=== PATIENT | male | born 1975 | race African-American/Black ===

== ENCOUNTER 2016-05-26 12:56 | Inpatient (IN) | payer OTHER ==
[2016-05-26 14:28] VITALS: BMI 27.1
--- NOTE | 2016-05-26 17:10 | HP ---
CIWA Score - CIWA Score Nausea/Vomitin Muscle Tremors: 4-Moderate,w/Arms Extend Anxiety: 4-Mod. Anxious/Guarded Agitation: 4-Moderately Restless Paroxysmal Sweats: 2 Orientation: 0-Oriented Tacttile Disturbances: 0-None Auditory Disturbances: 0-None Visual Disturbances: 0-None Headache: 3-Moderate CIWA-Ar Total Score: 19 Admission ROS BHS - HPI Chief Complaint: withdrawal sx Allergies/Adverse Reactions: Allergies Allergy/AdvReac Type Severity Reaction Status Date / Time No Known Allergies Allergy Verified 05/26/16 16:53 History of Present Illness: 41 years old male with long history of alcohol nicotine dependence, denies medical issue has depression, longest sobriety 4 months is admitted to detox Exam Limitations: No Limitations - Ebola screening Have you traveled outside of the country in the last 21 days: No Have you had contact with anyone from an Ebola affected area: No Have you been sick,other than usual withdrawal symptoms: No Do you have a fever: No - Review of Systems Constitutional: Chills, Changes in sleep, Weight Stable EENT: reports: No Symptoms Reported Respiratory: reports: Cough Cardiac: reports: No Symptoms Reported GI: reports: Diarrhea, Nausea, Poor Fluid Intake, Vomiting, Indigestion, Abdominal cramping : reports: No Symptoms Reported Musculoskeletal: reports: Back Pain, Joint Pain, Muscle Pain, Neck Pain Integumentary: reports: Lesions (right nostrile) Neuro: reports: Tremors Endocrine: reports: No Symptoms Reported Hematology: reports: No Symptoms Reported Psychiatric: reports: Judgement Intact, Orientated x3, Depressed Other Systems: Reviewed and Negative Patient History - Patient Medical History Hx Anemia: No Hx Asthma: No Hx Chronic Obstructive Pulmonary Disease (COPD): No Hx Cancer: No Hx Cardiac Disorders: No Hx Congestive Heart Failure: No Hx Hypertension: No Hx Hypercholesterolemia: No Hx Pacemaker: No HX Cerebrovascular Accident: No Hx Seizures: No Hx Dementia: No Hx Diabetes: No Hx Gastrointestinal Disorders: No Hx Genitourinary Disorders: No Hx Sexually Transmitted Disorders: Yes (syphilis) Hx Renal Disease (ESRD): No Hx Thyroid Disease: No Hx Human Immunodeficiency Virus (HIV): No Hx Hepatitis C: No Hx Depression: Yes Hx Suicide Attempt: No Hx Bipolar Disorder: No Hx Schizophrenia: No - Patient Surgical History Past Surgical History: No Hx Neurologic Surgery: No Hx Cataract Extraction: No Hx Cardiac Surgery: No Hx Lung Surgery: No Hx Breast Surgery: No Hx Breast Biopsy: No Hx Abdominal Surgery: No Hx Appendectomy: No Hx Cholecystectomy: No Hx Genitourinary Surgery: No Hx Orthopedic Surgery: No - PPD History Previous Implant?: Yes Documented Results: Negative w/proof Implanted On Prior [facility] Admission?: Yes Date: 04/12/13 PPD to be Administered?: Yes - Smoking Cessation Smoking history: Current every day smoker Have you smoked in the past 12 months: Yes Aproximately how many cigarettes per day: 10 Cigars Per Day: 0 Hx Chewing Tobacco Use: No Initiated information on smoking cessation: Yes 'Breaking Loose' booklet given: 05/26/16 - Substance & Tx. History Hx Alcohol Use: Yes Hx Substance Use: Yes Substance Use Type: Alcohol, Cocaine, Tranquilizers Hx Substance Use Treatment: Yes - Substances Abused Alcohol Route: Oral Frequency: Daily Amount used: LIQUOR- 2 PINTS, BBER- 1 SIX PACK Age of first use: 14 Date of Last Use: 05/25/16 Alprazolam (Xanax) Route: Oral Frequency: 3-6 times per week Amount used: 12 mg Age of first use: 40 Date of Last Use: 05/24/16 Cocaine Route: Smoking Frequency: Daily Family Disease History - Family Disease History Family Disease History: Respiratory: Father (alcohol ), Mother (alcohol ) Admission Physical Exam BHS - Vital Signs Vital Signs: Vital Signs - 24 hr 05/26/16 14:26 Temperature 98.8 F Pulse Rate 60 Respiratory 18 Rate Blood Pressure 129/70 - Physical General Appearance: Yes: Appropriately Dressed, Moderate Distress, Tremorous, Irritable, Sweating, Anxious HEENTM: Yes: Hearing grossly Normal, Normal ENT Inspection, Normocephalic, Normal Voice Respiratory: Yes: Chest Non-Tender, Lungs Clear, Normal Breath Sounds, No Respiratory Distress, No Accessory Muscle Use Neck: Yes: Supple, Trachea in good position Breast: Yes: Breasts Symetrical Cardiology: Yes: Regular Rhythm, Regular Rate, S1, S2 Abdominal: Yes: Non Tender, Soft Genitourinary: Yes: Within Normal Limits Back: Yes: Normal Inspection Musculoskeletal: Yes: full range of Motion, Gait Steady Extremities: Yes: Normal Range of Motion, Non-Tender, Tremors Neurological: Yes: Fully Oriented, Alert, Motor Strength 5/5, Normal Response, Depressed Affect Integumentary: Yes: Warm, Clammy Lymphatic: Yes: Within Normal Limits - Diagnostic (1) Nicotine dependence Current Visit: Yes Status: Active (2) Alcohol dependence with uncomplicated withdrawal Current Visit: Yes Status: Acute (3) Vomiting and diarrhea Current Visit: Yes Status: Acute (4) Depression (emotion) Current Visit: Yes Status: Suspected Qualifiers: Depression Type: dysthymia Qualified Code(s): F34.1 - Dysthymic disorder (5) Acid reflux Current Visit: Yes Status: Acute Qualifiers: Esophagitis presence: without esophagitis Qualified Code(s): K21.9 - Gastro-esophageal reflux disease without esophagitis (6) Cocaine dependence, uncomplicated Current Visit: Yes Status: Chronic (7) Abrasion of skin Current Visit: Yes Status: Acute Comment: right nostril Cleared for Admission S - Detox or Rehab [facility] Level of Care: Medically Managed Detox Regimen/Protocol: Librium S Breath Alcohol Content Breath Alcohol Content: 0 Urine Drug Screen - Results Drug Screen Negative: No Urine Drug Screen Results: MATT-Cocaine, BZO-Benzodiazepines
[2016-05-26] MEDS ORDERED: NICOTINE POLACRILEX 2 MG GUM BC PRN (17:17)
[2016-05-26] MEDS ORDERED: MAG HYDROX/AL HYDROX/SIMETH 30 ML UNIT-DOSE CUP PO PRN (17:17)
[2016-05-26] MEDS ORDERED: MAGNESIUM HYDROX 2400MG/30ML ORAL SUSPENSION 30 ML CUP PO PRN (17:17)
[2016-05-26] MEDS ORDERED: ACETAMINOPHEN 325 MG TABLET (FP) PO PRN (17:17)
[2016-05-26] MEDS ORDERED: MAGNESIUM CITRATE 300 ML BOTTLE PO PRN (17:17)
[2016-05-26] MEDS ORDERED: hydrOXYzine PAMOATE 50 MG CAPSULE (FP) PO PRN (17:17)
[2016-05-26] MEDS ORDERED: P-EPHED 60MG/TRIPROLIDI 2.5MG TABLET PO PRN (17:17)
[2016-05-26] MEDS ORDERED: MENTHOL/PHENOL 1 EACH UD MM PRN (17:17)
[2016-05-26] MEDS ORDERED: chlordiazePOXIDE HCL 25 MG CAPSULE PO PRN (17:17)
[2016-05-26] MEDS ORDERED: guaiFENesin/D-METHORPHAN HB 10 ML UNIT-DOSE CUPS PO PRN (17:17)
[2016-05-26] MEDS ORDERED: LOPERAMIDE HCL 2 MG CAPSULE PO PRN (17:17)
[2016-05-26] MEDS ORDERED: ONDANSETRON *ODT* 4 MG TABLET SL PRN (17:19)
[2016-05-26] MEDS ORDERED: BACITRACIN 0.9 GM PACKET TP ONE (17:45)
[2016-05-26] MEDS ORDERED: chlordiazePOXIDE HCL 25 MG CAPSULE PO ONE (18:15)
[2016-05-26] MEDS: THIAMINE HCL 100 MG TABLET (FP) PO SCH (22:35)
[2016-05-26] MEDS: chlordiazePOXIDE HCL 25 MG CAPSULE PO SCH (22:36)
[2016-05-26] MEDS: RANITIDINE HCL 150 MG TABLET (FP) PO SCH (22:36)
[2016-05-26] MEDS: diphenhydrAMINE HCL 50 MG CAPSULE PO PRN (22:36)
[2016-05-26 22:59] LABS: URINE APPEARANCE CLEAR; URINE BILIRUBIN NEGATIVE (NEGATIVE); URINE BLOOD NEGATIVE (NEGATIVE); URINE COLOR YELLOW; URINE GLUCOSE (UA) NEGATIVE (NEGATIVE); URINE KETONE NEGATIVE (NEGATIVE); URINE LEUK ESTERASE NEGATIVE (NEGATIVE); URINE NITRITE NEGATIVE (NEGATIVE); URINE PROTEIN NEGATIVE (NEGATIVE); URINE UROBILINOGEN NEGATIVE E.U./dl (0.2-1.0)
[2016-05-27] MEDS: chlordiazePOXIDE HCL 25 MG CAPSULE PO SCH ×4 (05:47→22:39)
[2016-05-27 10:07] LABS: MCH 30.2 pg (25.7-33.7); MCHC 32.5 g/dl (32.0-35.9); MEAN CELL VOLUME 92.9 fl (80-96); MEAN PLT VOLUME 10.3 fl (7.5-11.1); PLATELET COUNT 253 K/MM3 (134-434); RDW 13.9 % (11.9-15.9)
[2016-05-27] MEDS: NICOTINE 14 MG/24 HOURS TOPICAL PATCH TD SCH (10:34)
[2016-05-27] MEDS: RANITIDINE HCL 150 MG TABLET (FP) PO SCH ×2 (10:34→22:39)
[2016-05-27] MEDS: PRENATAL VITAMINS W/ FOLIC ACID TABLET (FP) PO SCH (10:34)
[2016-05-27 10:39] LABS: ALBUMIN 3.8 g/dl (3.4-5.0); ALK PHOS 81 U/L (45-117); ANION GAP 8 (8-16); BILIRUBIN,TOTAL 0.4 mg/dL (0.2-1.0); CALCIUM 9.1 mg/dL (8.5-10.1); CO2 27 mmol/L (21-32); CREATININE 1.2 mg/dL (0.7-1.3); GLUCOSE,RANDOM 79 mg/dL (74-106); SGOT/AST 18 U/L (15-37); SGPT/ALT 20 U/L (12-78)
--- NOTE | 2016-05-27 12:21 | EKG ---
Test Reason : Blood Pressure : / mmHG Vent. Rate : 054 BPM Atrial Rate : 054 BPM P-R Int : 156 ms QRS Dur : 080 ms QT Int : 430 ms P-R-T Axes : 035 063 048 degrees QTc Int : 407 ms SINUS BRADYCARDIA MINIMAL VOLTAGE CRITERIA FOR LVH, MAY BE NORMAL VARIANT ST ELEVATION, CONSIDER EARLY REPOLARIZATION BORDERLINE ECG WHEN COMPARED WITH ECG OF 09-APR-2013 17:47, VENT. RATE HAS DECREASED BY 29 BPM QT HAS SHORTENED Confirmed by MICAH BARTON, BIANCA ([id number]) on 05/27/2016 12:20:55 PM Referred By: Confirmed By:BIANCA OBRIEN MD
--- NOTE | 2016-05-27 14:56 | CONSULT ---
[facility] Psychiatric Consult - Data Date of interview: 05/27/16 Admission source: [facility] Identifying data: Readmission to [facility] for this 41 y/o AA male seeking detox treatment on for alcohol,cocaine and benzodiazepine (xanax) dependence.Patient is single without children,homeless,unemployed and deprived of any source of income. Substance Abuse History: - Smoking Cessation. Smoking history: Current every day smoker. Have you smoked in the past 12 months: Yes. Aproximately how many cigarettes per day: 10. Cigars Per Day: 0. Hx Chewing Tobacco Use: No. Initiated information on smoking cessation: Yes. 'Breaking Loose' booklet given : 05/26/16. - Substance & Tx. History. Hx Alcohol Use: Yes. Hx Substance Use : Yes. Substance Use Type: Alcohol, Cocaine, Tranquilizers. Hx Substance Use Treatment: Yes. - Substances Abused. Alcohol. Route: Oral. Frequency: Daily. Amount used: LIQUOR- 2 PINTS, BBER- 1 SIX PACK. Age of first use: 14. Date of Last Use: 05/25/16. Alprazolam (Xanax). Route: Oral. Frequency: 3- 6 times per week. Amount used: 12 mg. Age of first use: 40. Date of Last Use : 05/24/16. Cocaine. Route: Smoking. Frequency: Daily. Confirmed by patient. Medical History: History of treatment of syphilis. Psychiatric History: Patient denies history of psychiatric hospitalizations.Mr Stahl admits to past treatment with mirtazapine during his incarceration ( insomnia).He requests the addition of that drug to his current regimen of medications.No reported history of suicide attempts. Physical/Sexual Abuse/Trauma History: Patient denies. Additional Comment: Urine Drug Screen Results: MATT-Cocaine, BZO- Benzodiazepines.Noted. Mental Status Exam - Mental Status Exam Alert and Oriented to: Time, Place, Person Cognitive Function: Good Patient Appearance: Disheveled (overweight and covered with tattoos) Mood: Withdrawn, Apprehensive Affect: Mood Congruent Patient Behavior: Fatigued, Cooperative Speech Pattern: Clear Voice Loudness: Normal Thought Process: Goal Oriented Thought Disorder: Not Present Hallucinations: Denies Suicidal Ideation: Denies Homicidal Ideation: Denies Insight/Judgement: Poor Sleep: Poorly, Difficulty falling asleep Appetite: Good Muscle strength/Tone: Normal Gait/Station: Normal Psychiatric Findings - Problem List ([place] 1, 2,3) (1) Alcohol dependence with uncomplicated withdrawal Current Visit: Yes Status: Acute (2) Cocaine dependence, uncomplicated Current Visit: Yes Status: Acute (3) Nicotine dependence Current Visit: Yes Status: Active (4) Benzodiazepine dependence Current Visit: Yes Status: Acute (5) Substance induced mood disorder Current Visit: Yes Status: Acute (6) Acid reflux Current Visit: Yes Status: Chronic Qualifiers: Esophagitis presence: without esophagitis Qualified Code(s): K21.9 - Gastro-esophageal reflux disease without esophagitis (7) Insomnia Current Visit: Yes Status: Acute - Initial Treatment Plan Initial Treatment Plan: Pychoeducation.Detoxification.Remeron 15 mg po hs.Side effects/benefits discused with the patient.He agrees with this plan.Observation.
--- NOTE | 2016-05-27 15:33 | PN ---
[facility] CIWA - CIWA Score Nausea/Vomitin-Mild Nausea/No Vomiting Muscle Tremors: 4-Moderate,w/Arms Extend Anxiety: 4-Mod. Anxious/Guarded Agitation: 3 Paroxysmal Sweats: 3 Orientation: 0-Oriented Tacttile Disturbances: 0-None Auditory Disturbances: 0-None Visual Disturbances: 0-None Headache: 0-None Present CIWA-Ar Total Score: 15 S Progress Note (SOAP) Subjective: Anxiety,tremors,sweating,interrupted sleep,restless Objective: 05/27/16 15:32 Vital Signs - 8 hr 05/27/16 05/27/16 09:53 13:46 Temperature 97.7 F 96.6 F L Pulse Rate 73 72 Respiratory 18 18 Rate Blood Pressure 119/73 119/69 Laboratory Last Values WBC 6.0 K/mm3 (4.0-10.0) 05/27/16 06:00 RBC 4.80 M/mm3 (4.00-5.60) 05/27/16 06:00 Hgb 14.5 GM/dL (11.7-16.9) 05/27/16 06:00 Hct 44.6 % (35.4-49) 05/27/16 06:00 MCV 92.9 fl (80-96) 05/27/16 06:00 MCHC 32.5 g/dl (32.0-35.9) 05/27/16 06:00 RDW 13.9 % (11.9-15.9) 05/27/16 06:00 Plt Count 253 K/MM3 (134-434) D 05/27/16 06:00 MPV 10.3 fl (7.5-11.1) 05/27/16 06:00 Sodium 140 mmol/L (136-145) 05/27/16 06:00 Potassium 4.3 mmol/L (3.5-5.1) 05/27/16 06:00 Chloride 105 mmol/L (98-107) 05/27/16 06:00 Carbon Dioxide 27 mmol/L (21-32) 05/27/16 06:00 Anion Gap 8 (8-16) 05/27/16 06:00 BUN 17 mg/dL (7-18) 05/27/16 06:00 Creatinine 1.2 mg/dL (0.7-1.3) 05/27/16 06:00 Creat Clearance w eGFR > 60 (>60) 05/27/16 06:00 Random Glucose 79 mg/dL (74-106) D 05/27/16 06:00 Calcium 9.1 mg/dL (8.5-10.1) 05/27/16 06:00 Total Bilirubin 0.4 mg/dL (0.2-1.0) D 05/27/16 06:00 AST 18 U/L (15-37) 05/27/16 06:00 ALT 20 U/L (12-78) D 05/27/16 06:00 Alkaline Phosphatase 81 U/L (45-117) 05/27/16 06:00 Total Protein 7.0 g/dl (6.4-8.2) 05/27/16 06:00 Albumin 3.8 g/dl (3.4-5.0) 05/27/16 06:00 Urine Color Yellow 05/26/16 21:00 Urine Appearance Clear 05/26/16 21:00 Urine pH 6.0 (5.0-8.0) 05/26/16 21:00 Ur Specific [place] 1.028 (1.001-1.035) 05/26/16 21:00 Urine Protein Negative (NEGATIVE) 05/26/16 21:00 Urine Glucose (UA) Negative (NEGATIVE) 05/26/16 21:00 Urine Ketones Negative (NEGATIVE) 05/26/16 21:00 Urine Blood Negative (NEGATIVE) 05/26/16 21:00 Urine Nitrite Negative (NEGATIVE) 05/26/16 21:00 Urine Bilirubin Negative (NEGATIVE) 05/26/16 21:00 Urine Urobilinogen Negative E.U./dl (0.2-1.0) 05/26/16 21:00 Ur Leukocyte Esterase Negative (NEGATIVE) 05/26/16 21:00 RPR Titer Nonreactive (NONREACTIVE) 05/27/16 06:00 labs noted Assessment: 05/27/16 15:32 Withdrawal sx. Plan: continue detox
[2016-05-27] MEDS: MIRTAZAPINE 15 MG TABLET (FP) PO SCH (22:39)
[2016-05-27] MEDS: diphenhydrAMINE HCL 50 MG CAPSULE PO PRN (22:39)
[2016-05-27] MEDS: THIAMINE HCL 100 MG TABLET (FP) PO SCH (22:39)
[2016-05-28] MEDS: chlordiazePOXIDE HCL 25 MG CAPSULE PO SCH ×3 (05:52→17:29)
[2016-05-28] MEDS: NICOTINE 14 MG/24 HOURS TOPICAL PATCH TD SCH (10:50)
[2016-05-28] MEDS: PRENATAL VITAMINS W/ FOLIC ACID TABLET (FP) PO SCH (10:50)
[2016-05-28] MEDS: RANITIDINE HCL 150 MG TABLET (FP) PO SCH ×2 (10:50→22:53)
--- NOTE | 2016-05-28 13:31 | PN ---
S CIWA - CIWA Score Nausea/Vomitin-No Nausea/No Vomiting Muscle Tremors: 4-Moderate,w/Arms Extend Anxiety: 4-Mod. Anxious/Guarded Agitation: 3 Paroxysmal Sweats: 3 Orientation: 0-Oriented Tacttile Disturbances: 0-None Auditory Disturbances: 0-None Visual Disturbances: 0-None Headache: 0-None Present CIWA-Ar Total Score: 14 BHS Progress Note (SOAP) Subjective: Anxiety,tremors,sweating,interrupted sleep,restless. Objective: 05/28/16 13:29 Vital Signs - 8 hr 05/28/16 05/28/16 06:47 09:59 Temperature 97.2 F L 97.8 F Pulse Rate 58 L 73 Respiratory 18 18 Rate Blood Pressure 125/75 113/68 Laboratory Tests 05/26/16 05/27/16 05/27/16 21:00 06:00 06:00 WBC 6.0 RBC 4.80 Hgb 14.5 Hct 44.6 MCV 92.9 MCHC 32.5 RDW 13.9 Plt Count 253 D MPV 10.3 Sodium 140 Potassium 4.3 Chloride 105 Carbon Dioxide 27 Anion Gap 8 BUN 17 Creatinine 1.2 Creat Clearance w eGFR > 60 Random Glucose 79 D Calcium 9.1 Total Bilirubin 0.4 D AST 18 ALT 20 D Alkaline Phosphatase 81 Total Protein 7.0 Albumin 3.8 Urine Color Yellow Urine Appearance Clear Urine pH 6.0 Ur Specific [place] 1.028 Urine Protein Negative Urine Glucose (UA) Negative Urine Ketones Negative Urine Blood Negative Urine Nitrite Negative Urine Bilirubin Negative Urine Urobilinogen Negative Ur Leukocyte Esterase Negative RPR Titer 05/27/16 06:00 WBC RBC Hgb Hct MCV MCHC RDW Plt Count MPV Sodium Potassium Chloride Carbon Dioxide Anion Gap BUN Creatinine Creat Clearance w eGFR Random Glucose Calcium Total Bilirubin AST ALT Alkaline Phosphatase Total Protein Albumin Urine Color Urine Appearance Urine pH Ur Specific [place] Urine Protein Urine Glucose (UA) Urine Ketones Urine Blood Urine Nitrite Urine Bilirubin Urine Urobilinogen Ur Leukocyte Esterase RPR Titer Nonreactive labs noted Assessment: 05/28/16 13:29 withdrawal sx. Plan: continue detox
[2016-05-28] MEDS: THIAMINE HCL 100 MG TABLET (FP) PO SCH (22:53)
[2016-05-28] MEDS: MIRTAZAPINE 15 MG TABLET (FP) PO SCH (22:53)
[2016-05-28] MEDS: chlordiazePOXIDE 5 MG CAPSULE PO SCH (22:53)
[2016-05-28] MEDS: diphenhydrAMINE HCL 50 MG CAPSULE PO PRN (22:54)
[2016-05-29] MEDS: chlordiazePOXIDE 5 MG CAPSULE PO SCH ×3 (05:55→17:32)
[2016-05-29] MEDS: RANITIDINE HCL 150 MG TABLET (FP) PO SCH ×2 (10:36→22:33)
[2016-05-29] MEDS: PRENATAL VITAMINS W/ FOLIC ACID TABLET (FP) PO SCH (10:36)
[2016-05-29] MEDS: NICOTINE 14 MG/24 HOURS TOPICAL PATCH TD SCH (10:36)
--- NOTE | 2016-05-29 11:29 | PN ---
BHS Progress Note (SOAP) Subjective: BODY ACHES, ANXIETY,SWEATS. Objective: 05/29/16 11:28 Vital Signs Temperature 98.2 F 05/29/16 09:57 Pulse Rate 72 05/29/16 09:57 Respiratory Rate 18 05/29/16 09:57 Blood Pressure 127/76 05/29/16 09:57 O2 Sat by Pulse Oximetry (%) Assessment: 05/29/16 11:28 WITHDRAWAL SX Plan: CONTINUE DETOX NAPROSYN AND FLEXERIL DIRECTED
[2016-05-29] MEDS: CYCLOBENZAPRINE HCL 10 MG TABLET (FP) PO SCH ×2 (13:06→22:33)
[2016-05-29] MEDS: chlordiazePOXIDE HCL 10 MG CAPSULE PO SCH (22:33)
[2016-05-29] MEDS: MIRTAZAPINE 15 MG TABLET (FP) PO SCH (22:33)
[2016-05-29] MEDS: THIAMINE HCL 100 MG TABLET (FP) PO SCH (22:33)
[2016-05-29] MEDS: diphenhydrAMINE HCL 50 MG CAPSULE PO PRN (22:34)
[2016-05-30] MEDS: chlordiazePOXIDE HCL 10 MG CAPSULE PO SCH (04:49)
[2016-05-30] MEDS: CYCLOBENZAPRINE HCL 10 MG TABLET (FP) PO SCH (05:31)
[2016-05-30 06:31] VITALS: BP 138/92; PULSE 61; TEMP 96.3
[2016-05-30] MEDS: PRENATAL VITAMINS W/ FOLIC ACID TABLET (FP) PO SCH (09:50)
[2016-05-30] MEDS: RANITIDINE HCL 150 MG TABLET (FP) PO SCH (09:50)
--- NOTE | 2016-05-30 15:43 | DS ---
[facility] Detox Discharge Summary Admission Date: 05/26/16 Discharge Date: 05/30/16 - History Present History: Alcohol Dependence, Cocaine Dependence Additional Comments: ADVISED PT. TO FOLLOW-UP WITH [facility] / REHAB MEDICAL PROVIDER AFTER DISCHARGE FROM DETOX FOR GENERAL MEDICAL ASSESSMENT. Pertinent Past History: Acid Reflux. - Physical Exam Results Vital Signs: Vital Signs Temperature 96.3 F L 05/30/16 06:31 Pulse Rate 61 05/30/16 06:31 Respiratory Rate 18 05/30/16 06:31 Blood Pressure 138/92 05/30/16 06:31 O2 Sat by Pulse Oximetry (%) Pertinent Admission Physical Exam Findings: WITHDRAWAL SYMPTOMS. Laboratory Last Values WBC 6.0 K/mm3 (4.0-10.0) 05/27/16 06:00 RBC 4.80 M/mm3 (4.00-5.60) 05/27/16 06:00 Hgb 14.5 GM/dL (11.7-16.9) 05/27/16 06:00 Hct 44.6 % (35.4-49) 05/27/16 06:00 MCV 92.9 fl (80-96) 05/27/16 06:00 MCHC 32.5 g/dl (32.0-35.9) 05/27/16 06:00 RDW 13.9 % (11.9-15.9) 05/27/16 06:00 Plt Count 253 K/MM3 (134-434) D 05/27/16 06:00 MPV 10.3 fl (7.5-11.1) 05/27/16 06:00 Sodium 140 mmol/L (136-145) 05/27/16 06:00 Potassium 4.3 mmol/L (3.5-5.1) 05/27/16 06:00 Chloride 105 mmol/L (98-107) 05/27/16 06:00 Carbon Dioxide 27 mmol/L (21-32) 05/27/16 06:00 Anion Gap 8 (8-16) 05/27/16 06:00 BUN 17 mg/dL (7-18) 05/27/16 06:00 Creatinine 1.2 mg/dL (0.7-1.3) 05/27/16 06:00 Creat Clearance w eGFR > 60 (>60) 05/27/16 06:00 Random Glucose 79 mg/dL (74-106) D 05/27/16 06:00 Calcium 9.1 mg/dL (8.5-10.1) 05/27/16 06:00 Total Bilirubin 0.4 mg/dL (0.2-1.0) D 05/27/16 06:00 AST 18 U/L (15-37) 05/27/16 06:00 ALT 20 U/L (12-78) D 05/27/16 06:00 Alkaline Phosphatase 81 U/L (45-117) 05/27/16 06:00 Total Protein 7.0 g/dl (6.4-8.2) 05/27/16 06:00 Albumin 3.8 g/dl (3.4-5.0) 05/27/16 06:00 Urine Color Yellow 05/26/16 21:00 Urine Appearance Clear 05/26/16 21:00 Urine pH 6.0 (5.0-8.0) 05/26/16 21:00 Ur Specific [place] 1.028 (1.001-1.035) 05/26/16 21:00 Urine Protein Negative (NEGATIVE) 05/26/16 21:00 Urine Glucose (UA) Negative (NEGATIVE) 05/26/16 21:00 Urine Ketones Negative (NEGATIVE) 05/26/16 21:00 Urine Blood Negative (NEGATIVE) 05/26/16 21:00 Urine Nitrite Negative (NEGATIVE) 05/26/16 21:00 Urine Bilirubin Negative (NEGATIVE) 05/26/16 21:00 Urine Urobilinogen Negative E.U./dl (0.2-1.0) 05/26/16 21:00 Ur Leukocyte Esterase Negative (NEGATIVE) 05/26/16 21:00 RPR Titer Nonreactive (NONREACTIVE) 05/27/16 06:00 LABS NOTED. - Treatment Hospital Course: Detox Protocol Followed, Detoxed Safely, Responded well, Discharged Condition Good - Medication Discharge Medications: Ambulatory Orders Mirtazapine [Remeron -] 30 mg PO DAILY 05/26/16 Mirtazapine [Remeron -] 15 mg PO HS #30 tablet 05/27/16 - Diagnosis (1) Cocaine dependence Status: Acute (2) Nicotine dependence Status: Chronic (3) Alcohol dependence with uncomplicated withdrawal Status: Acute (4) Vomiting and diarrhea Status: Acute (5) Acid reflux Status: Chronic Qualifiers: Esophagitis presence: without esophagitis Qualified Code(s): K21.9 - Gastro-esophageal reflux disease without esophagitis - AMA Did Patient Leave Against Medical Advice: No
== END 2016-05-30 10:54 | disposition home or self-care (01) | DRG 774 ==
LOC: YASAS 12:56 → Y3N 17:59
PROVIDERS: ADMIT Internal Medicine; ATTEND Internal Medicine
PROC: HZ2ZZZZ Detoxification Services for Substance Abuse Treatment (ICD-10-PCS; principal; 2016-05-26)
DX: F10.230 Alcohol dependence with withdrawal, uncomplicated (principal); F13.20 Sedative, hypnotic or anxiolytic dependence, uncomplicated; F14.20 Cocaine dependence, uncomplicated; F17.210 Nicotine dependence, cigarettes, uncomplicated; F19.24 Other psychoactive substance dependence with psychoactive substance-induced mood disorder; G47.00 Insomnia, unspecified; R11.2 Nausea with vomiting, unspecified
CPT/HCPCS: 36415; 80053; 81003; 85027; 86593; 93005; 93010